=== PATIENT | female | born 2000 | race American Indian/Alaskan Native ===

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

== ENCOUNTER 2025-09-22 12:52 | Emergency (ER) | payer OTHER | END 2025-09-22 13:50 | disposition home or self-care (01) | LOC: FB.ED 12:52 | DX: R20.2 Paresthesia of skin (principal); V49.40XA Driver injured in collision with unspecified motor vehicles in traffic accident, initial encounter; Y92.410 Unspecified street and highway as the place of occurrence of the external cause | CPT/HCPCS: 99283 ==